=== PATIENT | male | born 1985 | race Native Hawaiian/Other Pacific Islander ===

== ENCOUNTER 2017-05-11 15:14 | Emergency (ER) | payer OTHER ==
[~2017-05-11] VITALS: Ht 175.3 cm; Wt 108.9 kg
== END 2017-05-11 16:51 | disposition home or self-care (01) ==
LOC: ED 15:14
DX: R07.89 Other chest pain (principal)
CPT/HCPCS: 99282

== ENCOUNTER 2019-10-24 17:15 | Outpatient (CLI) | payer OTHER | END 2019-10-24 17:19 | disposition short-term general hospital (02) | LOC: AMB 17:15 | DX: R07.9 Chest pain, unspecified (principal); V49.49XA Driver injured in collision with other motor vehicles in traffic accident, initial encounter; Y92.89 Other specified places as the place of occurrence of the external cause | CPT/HCPCS: A0425; A0429 ==

== ENCOUNTER 2019-10-24 17:21 | Emergency (ER) | payer OTHER ==
[~2019-10-24] VITALS: Ht 175.3 cm; Wt 86.2 kg
[2019-10-24 18:56] LABS: PLATELET COUNT 226 K/uL (142-355)
[2019-10-24 19:03] LABS: POTASSIUM 4.1 mmol/L (3.6-5.2)
[2019-10-24 19:23] LABS: PARTIAL THROMBOPLASTIN TIME 23.2 SECONDS (24.5-33.6)
[2019-10-24 21:25] VITALS: BP 119/75; TEMP 98.9
== END 2019-10-24 21:25 | disposition home or self-care (01) ==
LOC: ED 17:21
PROVIDERS: Hospitalist
DX: S06.0X1A Concussion with loss of consciousness of 30 minutes or less, initial encounter (principal); S16.1XXA Strain of muscle, fascia and tendon at neck level, initial encounter; S39.012A Strain of muscle, fascia and tendon of lower back, initial encounter; S93.401A Sprain of unspecified ligament of right ankle, initial encounter; V49.40XA Driver injured in collision with unspecified motor vehicles in traffic accident, initial encounter
CPT/HCPCS: 80048; 80320; 85027; 85610; 85730; 96374; 99284; J1885

== ENCOUNTER 2021-08-10 13:22 | Emergency (ER) | payer BC ==
[~2021-08-10] VITALS: Ht 177.8 cm; Wt 97.5 kg
[2021-08-10 13:33] VITALS: BP 122/73; TEMP 97.2
== END 2021-08-10 14:09 | disposition home or self-care (01) ==
LOC: ED 13:22
DX: S46.092A Other injury of muscle(s) and tendon(s) of the rotator cuff of left shoulder, initial encounter (principal); X58.XXXA Exposure to other specified factors, initial encounter; Y92.89 Other specified places as the place of occurrence of the external cause
CPT/HCPCS: 99281